=== PATIENT | male | born 1965 | race Caucasian/White ===

== ENCOUNTER → 2022-05-12 | Emergency (ER) | payer OTHER ==
[~2022-05-12] VITALS: Ht 165.1 cm; Wt 79.4 kg
[~2022-05-12] MED LIST: IBUP-1953 PO; IBUPROFEN 600 MG TABLET ONE; IBUPROFEN 600 MG TABLET PO ONE
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
[2022-05-12 19:55] VITALS: BP 139/77
--- NOTE | 2022-05-12 19:55 | NUR ---
Patient discharged to home in stable condition. Written and verbal after care instructions given. Patient verbalizes understanding of instruction. Pt ambulatory with a steady gait
== END | disposition home or self-care (01) ==
LOC: ER 18:22
DX: S20.219A Contusion of unspecified front wall of thorax, initial encounter (principal); V89.2XXA Person injured in unspecified motor-vehicle accident, traffic, initial encounter; Y93.89 Activity, other specified; Y92.89 Other specified places as the place of occurrence of the external cause; Y99.8 Other external cause status
CPT/HCPCS: 71045-TC